=== PATIENT | male | born 1945 | race Caucasian/White ===

== ENCOUNTER 2018-07-22 14:59 | Observation (INO) ==
--- NOTE | 2018-07-22 15:54 | XR ---
EXAM DATE: 07/22/2018 3:51 PM EDT AGE/SEX: 73 years / Male INDICATIONS: . Chest pain. CLINICAL DATA: This is the patient's initial encounter. Patient reports that signs and symptoms have been present for 1 day and indicates a pain score of 7/10. MEDICAL/SURGICAL HISTORY: Heart disease. CABG. Pacemaker. COMPARISON: No prior exams available for comparison. FINDINGS: Dual lead pacemaker in place. Median sternotomy wires with postsurgical features of prior aortic valv e replacement. No significant focal pleural or parenchymal opacities. Cardiomediastinal contours are within normal limits. Bony thorax is intact. CONCLUSION: 1. Postsurgical features. 2. No acute cardiopulmonary disease. Electronically signed by: Deion Jaimes MD 07/22/2018 3:53 PM EDT
[2018-07-22 17:41] LABS: Baso % (Auto) 0.5 % (0.0-2.0); Eos # (Auto) 0.2 th/mm3 (0.0-0.4); Eos % (Auto) 3.4 % (0.0-4.0); Hemoglobin 14.1 gm/dL (13.0-17.0); Lymph # (Auto) 1.2 th/mm3 (1.0-4.8); Lymph % (Auto) 24.3 % (9.0-44.0); Mean Corpuscular HGB Conc 34.4 % (32.0-36.0); Mean Corpuscular Hemoglobin 32.3 pg (27.0-34.0); Mean Corpuscular Volume 93.9 fL (80.0-100.0); Mean Platelet Volume 9.2 fL (7.0-11.0); Mono # (Auto) 0.5 th/mm3 (0.0-0.9); Mono % (Auto) 9.4 % (0.0-8.0); Neut # (Auto) 3.1 th/mm3 (1.8-7.7); Neut % (Auto) 62.4 % (16.0-70.0); Platelet Count 148 th/mm3 (150-450); Red Blood Count 4.37 mil/mm3 (4.50-5.90); Red Cell Distribution Width 15.2 % (11.6-17.2)
[2018-07-22 17:50] LABS: Activated Partial Thrombo Time 39.6 sec (24.3-30.1); INR 2.1 Ratio; Prothrombin Time 21.6 sec (9.8-11.6)
[2018-07-22 18:05] LABS: Anion Gap 7 meq/L (5-15); Aspartate Aminotransferase 24 U/L (15-37); Blood Urea Nitrogen 21 mg/dL (7-18); Calcium 8.6 mg/dL (8.5-10.1); Carbon Dioxide 27.1 meq/L (21.0-32.0); Chloride 109 meq/L (98-107); Glomerular Filtration Rate 46 mL/min (>89); Glucose,Random 78 mg/dL (74-106); Potassium 4.5 meq/L (3.5-5.1); Sodium 143 meq/L (136-145)
[2018-07-22 18:06] LABS: Alanine Aminotransferase 26 U/L (12-78)
--- NOTE | 2018-07-22 18:11 | ED ---
HPI General Chief Complaint: Chest Pain Stated Complaint: Abnormal Cardiac Result Time Seen by Provider: 07/22/18 17:14 Source: patient Mode of arrival: ambulatory Limitations: no limitations History of Present Illness HPI narrative: 73-year-old male presents to the emergency department for evaluation of chest pain that started about noon today. Patient says he was at an appointment at [facility] when he began having chest pain located midsternal. Says he has occasional radiation of sharp pain to his left shoulder but the pain is mainly located midsternal region. He says it "grabbed him". Says initially the onset was while sitting however, states throughout the time over there he developed chest pain with walking. He says this pain would last approximately 1 minute before resolving spontaneously. Says he has taken 4 baby aspirin today and is currently on Coumadin. States compliance with his medications. Says his pain is mild to moderate. He denies associated symptoms such as nausea or vomiting although he said last night he had a period of lightheadedness while cooking. Says he has not been feeling well for about a week but does not specify this further. He denies lightheadedness currently however. He has a history of CABG October 2016, s/p pacemaker, HTN, HLD. His under cutter is Dr. Gage in [place]. He does not remember his last stress test but he was told that his under cutter does not prefer to get one done. Last echocardiogram 2 weeks ago. MD complaint: chest pain Complete Quality Measures for STEMI Alert Patients STEMI Alert: No Duration: intermittent Onset: during rest and during exertion Pain location: substernal Severity: moderate Quality: other (grabbing) Pain radiation: LUE Relieving factors: rest Exacerbating factors: exertion and movement Treatments prior to arrival chest pain: aspirin Related Data Home Medications Medication Instructions Recorded Confirmed levothyroxine 75 mcg PO DAILY 07/22/18 07/22/18 metoprolol tartrate 50 mg PO BID 07/22/18 07/22/18 rosuvastatin 40 mg PO DAILY 07/22/18 07/22/18 trazodone 50 mg PO DAILY 07/22/18 07/22/18 warfarin 5 mg PO DAILY 07/22/18 07/22/18 warfarin 7.5 mg PO QWEEK 07/22/18 07/22/18 Allergies Allergy/AdvReac Type Severity Reaction Status Date / Time brimonidine [From Alphagan P] Allergy Rash Verified 07/22/18 15:16 dorzolamide Allergy Rash Verified 07/22/18 15:16 oxycodone Allergy Rash Verified 07/22/18 15:16 propafenone [From Rythmol] Allergy Rash Verified 07/22/18 15:16 Tetanus Vaccines and Toxoid Allergy Swelling Verified 07/22/18 15:16 zolpidem [From Ambien] AdvReac Nightmare Verified 07/22/18 15:16 Review of Systems ROS: all other systems reviewed are negative PENDING SALE TO [facility] Medical History Medical History Atrial fibrillation (Acute) CAD (coronary artery disease) (Acute) CVA (cerebral vascular accident) (Acute) Hyperlipidemia (Acute) Hypertension (Acute) Surgical History Surgical History History of permanent cardiac pacemaker placement (Acute) History of repair of hiatal hernia (Acute) Hx of CABG (Acute) Status post laser cataract surgery of both eyes (Acute) Social History Social History Substance History: No History of Abuse Second Hand Smoke Exposure: No Smoking Status: Never smoker Tobacco Type: Cigarettes How Often Do You Have a Drink Containing Alcohol: Never Recent Travel in [facility] within the Last 8 Weeks: No Recent Out of Country Travel within the Last 8 Weeks: No Immunization History Tetanus Immunization: Unsure Exam Narrative Exam Narrative: GENERAL: WD, WN in NAD SKIN: Focused skin assessment warm/dry. HEAD: Atraumatic. Normocephalic. EYES: Pupils equal and round. No scleral icterus. No injection or drainage. ENT: No nasal bleeding or discharge. Mucous membranes pink and moist. NECK: Trachea midline. No JVD. CARDIOVASCULAR: Regular rate and rhythm. No murmur appreciated. RESPIRATORY: No accessory muscle use. Clear to auscultation. Breath sounds equal bilaterally. GASTROINTESTINAL: Abdomen soft, non-tender, nondistended. Hepatic and splenic margins not palpable. No tenderness to palpation of the chest wall MUSCULOSKELETAL: No obvious deformities. No clubbing. No cyanosis. No edema. No tenderness to palpation of the calves NEUROLOGICAL: Awake and alert. No obvious cranial nerve deficits. Motor grossly within normal limits. Normal speech. PSYCHIATRIC: Appropriate mood and affect; insight and judgment normal. Course Initial Documented Vital Signs Temperature 97.8 F 07/22/18 15:03 Pulse Rate 64 07/22/18 15:03 Respiratory Rate 16 07/22/18 15:03 Blood Pressure 187/86 H 07/22/18 15:03 Pulse Oximetry 98 07/22/18 15:03 Last Documented Vital Signs Temperature 97.7 F 07/23/18 16:00 Pulse Rate 60 07/23/18 16:00 Respiratory Rate 16 07/23/18 16:00 Blood Pressure 136/67 07/23/18 16:00 Pulse Oximetry 96 07/23/18 16:00 Clinical Decision Support HEART Score Questions History: Moderately suspicious EKG: Non-specific repolarization disturbance Age: 65 years+ Risk Factors: 3 or more Risk Factors or Hx of Atherosclerotic Disease Initial Troponin: Normal Limit Heart Score HEART Score: 6 Medical Decision Making MDM Narrative Medical decision making narrative: 73-year-old male with a history of CABG 2016 status post pacemaker on Coumadin, hypertension, hyperlipidemia presents to the emergency department for chest [facility]. Says his pain started at noon and is intermittent and "grabbing". Currently his pain is mild at the worst. He denies associated signs or symptoms. His vital signs are stable. Labs ordered. BUN/creatinine 21/1.51. I do not have reference labs for this. INR 2.1 which is therapeutic for patient. Troponin negative Chest x-ray is stable. Will place patient in chest pain center for evaluation. Medical Screen Exam Complete: Yes Emergency Medical Condition: Yes Differential Diagnosis Differential Diagnosis: ACS, angina, unstable angina costochondritis Lab Data Result diagrams: 07/22/18 17:30 07/22/18 17:30 Lab Results 07/22/18 07/22/18 07/22/18 Range/Units 17:30 17:30 17:30 WBC 5.0 (4.0-11.0) th/mm3 RBC 4.37 L (4.50-5.90) mil/mm3 Hgb 14.1 (13.0-17.0) gm/dL Hct 41.0 (39.0-51.0) % MCV 93.9 (80.0-100.0) fL MCH 32.3 (27.0-34.0) pg MCHC 34.4 (32.0-36.0) % RDW 15.2 (11.6-17.2) % Plt Count 148 L (150-450) th/mm3 MPV 9.2 (7.0-11.0) fL Neut % (Auto) 62.4 (16.0-70.0) % Lymph % (Auto) 24.3 (9.0-44.0) % [place] % (Auto) 9.4 H (0.0-8.0) % Eos % (Auto) 3.4 (0.0-4.0) % Baso % (Auto) 0.5 (0.0-2.0) % Neut # (Auto) 3.1 (1.8-7.7) th/mm3 Lymph # (Auto) 1.2 (1.0-4.8) th/mm3 [place] # (Auto) 0.5 (0.0-0.9) th/mm3 Eos # (Auto) 0.2 (0.0-0.4) th/mm3 Baso # (Auto) 0.0 (0.0-0.2) th/mm3 WBC Differential . Differential Comment Auto diff final PT 21.6 H (9.8-11.6) sec INR 2.1 Ratio APTT 39.6 H (24.3-30.1) sec Sodium 143 (136-145) meq/L Potassium 4.5 (3.5-5.1) meq/L Chloride 109 H (98-107) meq/L Carbon Dioxide 27.1 (21.0-32.0) meq/L Anion Gap 7 (5-15) meq/L BUN 21 H (7-18) mg/dL Creatinine 1.51 H (0.60-1.30) mg/dL Estimated GFR 46 L (>89) mL/min Random Glucose 78 (74-106) mg/dL Calcium 8.6 (8.5-10.1) mg/dL Total Bilirubin 1.2 H (0.2-1.0) mg/dL AST 24 (15-37) U/L ALT 26 (12-78) U/L Alkaline Phosphatase 60 (45-117) U/L Total Creatine Kinase (39-308) U/L Troponin I Less than 0.02 L (0.02-0.05) ng/mL Total Protein 7.2 (6.4-8.2) g/dL Albumin 4.0 (3.4-5.0) g/dL 07/22/18 07/23/18 Range/Units 20:45 00:13 WBC (4.0-11.0) th/mm3 RBC (4.50-5.90) mil/mm3 Hgb (13.0-17.0) gm/dL Hct (39.0-51.0) % MCV (80.0-100.0) fL MCH (27.0-34.0) pg MCHC (32.0-36.0) % RDW (11.6-17.2) % Plt Count (150-450) th/mm3 MPV (7.0-11.0) fL Neut % (Auto) (16.0-70.0) % Lymph % (Auto) (9.0-44.0) % [place] % (Auto) (0.0-8.0) % Eos % (Auto) (0.0-4.0) % Baso % (Auto) (0.0-2.0) % Neut # (Auto) (1.8-7.7) th/mm3 Lymph # (Auto) (1.0-4.8) th/mm3 [place] # (Auto) (0.0-0.9) th/mm3 Eos # (Auto) (0.0-0.4) th/mm3 Baso # (Auto) (0.0-0.2) th/mm3 WBC Differential Differential Comment PT (9.8-11.6) sec INR Ratio APTT (24.3-30.1) sec Sodium (136-145) meq/L Potassium (3.5-5.1) meq/L Chloride (98-107) meq/L Carbon Dioxide (21.0-32.0) meq/L Anion Gap (5-15) meq/L BUN (7-18) mg/dL Creatinine (0.60-1.30) mg/dL Estimated GFR (>89) mL/min Random Glucose (74-106) mg/dL Calcium (8.5-10.1) mg/dL Total Bilirubin (0.2-1.0) mg/dL AST (15-37) U/L ALT (12-78) U/L Alkaline Phosphatase (45-117) U/L Total Creatine Kinase 249 (39-308) U/L Troponin I 0.03 Less than 0.02 L (0.02-0.05) ng/mL Total Protein (6.4-8.2) g/dL Albumin (3.4-5.0) g/dL Imaging Data Radiologist's impression: Chest X-Ray 07/22/18 15:16 CONCLUSION: 1. Postsurgical features. 2. No acute cardiopulmonary disease. Myocardial Perfusion Scan Nuc Med 07/23/18 00:00 CONCLUSION: 1. Left ventricle perfusion is within normal limits. 2. No wall motion abnormality is identified. Left ventricle ejection fraction is calculated at 51%. Discharge Plan Discharge Disposition Patient Disposition: 30 Still Patient Discharge Condition Condition: Stable Discharge Order Discharge Orders: Discharge Order (Routine); Ordered 07/23/18 Ordered By: Erin Neumann Discharge Details Anticipated Discharge Date: 07/23/18 Diagnosis: Angina at rest Physicians Team ED Provider: Andreea Jack ED Midlevel Provider: Emily Armstrong Primary Care Provider: UNKNOWN, Attending Provider: Celena Eddy ED Status: Left Department Discharge Information Discharge Date/Time: 07/22/18 19:45
[2018-07-22 18:13] LABS: Alkaline Phosphatase 60 U/L (45-117); Total Protein 7.2 g/dL (6.4-8.2)
[2018-07-22] MEDS ORDERED: Acetaminophen 500 MG Tablet PO PRN (18:22)
[2018-07-22 21:30] LABS: Troponin I 0.03 ng/mL (0.02-0.05)
--- NOTE | 2018-07-23 08:05 | P.HPCA ---
History of Present Illness Primary Care Physician: [facility] Chief Complaint: Chest pain History of Present Illness: 73 year old male with history of coronary artery disease, CABG (October 2016), atrial fibrillation, and hypothyroidism presents emergency room for further evaluation of chest pain. Onset yesterday afternoon at 2pm, while at regularly scheduled PCP appointment. Location substernal. Characterized sharp. Radiation to left anterior chest. Discomfort came on quickly, gradually improving within 5 minutes. Moderate in severity. No associated symptoms of nausea, vomiting, dyspnea, or diaphoresis. No precipitating or relieving factors. He reassured his primary care provider is comfort likely musculoskeletal and proceeded to walk out of office. Chest discomfort return after walking 4-5 steps. Duration 2 minutes, not as severe as first episode. At this point, his PCP recommended him to be further evaluated in ER. Drove himself to ER. No further chest discomfort as stated above since arrival. Reports "every now and then I get a shooting achy pain across my chest." No recent illness, injury, or fever. Denies similar pain in the past. Denies chest pain prior to requiring CABG. Reports routine echocardiogram lead to further cardiac testing, cardiac catheterization, and fairly emergent open heart surgery on November 20, 2016. Believes he only required 1 vessel bypass. Follows with wellness specialist in [place], [place], Dr. Gage. No cardiac testing or chest pain since CABG. No recent illness, cough, or injury. Lifelong nonsmoker. Social history . Disable -[employer]. Retired from [employer]. Endorses active lifestyle. - Diagnosis (1) Chest pain of uncertain etiology (2) Atrial fibrillation (3) History of coronary artery bypass graft (4) Mild renal insufficiency Review of Systems All other systems reviewed negative except as stated in HPI [facility] - History History Provided By: Patient - Medical History Medical History: Medical History (Last Updated 07/23/18 @ 11:11 by MICHEAL Wilson) Atrial fibrillation CAD (coronary artery disease) CVA (cerebral vascular accident) Hyperlipidemia Hypertension - Surgical History Surgical History: Surgical History (Last Updated 07/23/18 @ 11:12 by MICHEAL Wilson) History of permanent cardiac pacemaker placement History of repair of hiatal hernia Hx of CABG Status post laser cataract surgery of both eyes - Tobacco History Second Hand Smoke Exposure: No Tobacco Use In Past 30 Days: No Smoking Status: Never smoker Tobacco Type: Cigarettes - Alcohol History How Often Do You Have a Drink Containing Alcohol: Never - Substance Use History Substance History: No History of Abuse - Travel History Recent Travel in the [place] Within the Last 8 Weeks: No Recent Travel Out of the Country Within the Last 8 Weeks: No - Immunization History Tetanus Immunization: Unsure Medications and Allergies Active Medications: Active Medications Acetaminophen (Tylenol) 500 mg PO Q4H PRN PRN Reason: HEADACHE Ondansetron HCl (Zofran Inj) 4 mg IV.PUSH Q6H PRN PRN Reason: NAUSEA Sodium Chloride (Ns Flush) 2 ml IV.FLUSH UNSCH PRN PRN Reason: FLUSH AFTER USING IV ACCESS Sodium Chloride (Ns Flush) 2 ml IV.FLUSH BID PACO Last Admin: 07/22/18 19:25 Dose: 2 ml Sodium Chloride (Ns Flush) 2 ml IV.FLUSH PRN PRN PRN Reason: FLUSH AFTER USING IV ACCESS Allergies Allergy/AdvReac Type Severity Reaction Status Date / Time brimonidine [From Alphagan P] Allergy Rash Verified 07/22/18 15:16 dorzolamide Allergy Rash Verified 07/22/18 15:16 oxycodone Allergy Rash Verified 07/22/18 15:16 propafenone [From Rythmol] Allergy Rash Verified 07/22/18 15:16 Tetanus Vaccines and Toxoid Allergy Swelling Verified 07/22/18 15:16 zolpidem [From Ambien] AdvReac Nightmare Verified 07/22/18 15:16 Home Medications Medication Instructions Recorded Confirmed Type levothyroxine 75 mcg PO DAILY 07/22/18 07/22/18 History metoprolol tartrate 50 mg PO BID 07/22/18 07/22/18 History rosuvastatin 40 mg PO DAILY 07/22/18 07/22/18 History trazodone 50 mg PO DAILY 07/22/18 07/22/18 History warfarin 5 mg PO DAILY 07/22/18 07/22/18 History warfarin 7.5 mg PO QWEEK 07/22/18 07/22/18 History Exam Vital signs: Vital Signs 07/22/18 15:03 07/22/18 17:11 07/22/18 17:25 Temperature 97.8 F Pulse Rate 64 60 Respiratory Rate 16 17 Blood Pressure 187/86 H 178/86 H Pulse Oximetry 98 98 96 07/22/18 18:09 07/22/18 19:32 07/22/18 20:00 Temperature 98.6 F Pulse Rate 59 L 60 60 Respiratory Rate 17 18 16 Blood Pressure 181/79 H 167/79 H 121/72 Pulse Oximetry 98 97 95 07/23/18 00:00 07/23/18 04:00 07/23/18 07:09 Temperature 98.1 F 98.6 F Pulse Rate 65 63 68 Respiratory Rate 16 16 Blood Pressure 140/73 133/68 Pulse Oximetry 94 L 94 L Intake & Output 07/22/18 07/23/18 07/23/18 18:59 06:59 18:59 Weight 116.573 kg 116.573 kg Other: Weight On Admission 116.573 kg Narrative: GENERAL: Alert WN, WD, NAD, pleasant, obese elderly male HEAD: NC, AT NECK: Supple, no masses, trachea midline CV: RRR, without murmur, rub, gallop, no JVD. No carotid bruits. Chest wall nontender with palpation. RESP: Clear lungs throughout bilateral, no crackles, wheeze, rhonchi, symmetrical chest rise, nonlabored, able to speak in full sentences ABD: Soft, NT, ND, no masses, positive bowel tones EXT: Pulses +2x4, no dependent edema MS: Normal tone x4 extremities, nontender, no obvious deformities, full range of motion NEURO: CN II through CN XII grossly intact, motor strength 5/5 PSYCH: A+O x3, pleasant affect, appropriate speech, mood, insight and judgment SKIN: Normal turgor, normal texture, no lesions, no rashes, brisk cap refill, even hair distribution Results 07/22/18 17:30 07/22/18 17:30 Cardiac Enzymes 07/22/18 07/22/18 07/23/18 Range/Units 17:30 20:45 00:13 AST 24 (15-37) U/L Troponin I Less than 0.02 L 0.03 Less than 0.02 L (0.02-0.05) ng/mL Coagulation 07/22/18 Range/Units 17:30 PT 21.6 H (9.8-11.6) sec APTT 39.6 H (24.3-30.1) sec CBC 07/22/18 Range/Units 17:30 WBC 5.0 (4.0-11.0) th/mm3 RBC 4.37 L (4.50-5.90) mil/mm3 Hgb 14.1 (13.0-17.0) gm/dL Hct 41.0 (39.0-51.0) % Plt Count 148 L (150-450) th/mm3 Neut # (Auto) 3.1 (1.8-7.7) th/mm3 Lymph # (Auto) 1.2 (1.0-4.8) th/mm3 [place] # (Auto) 0.5 (0.0-0.9) th/mm3 Eos # (Auto) 0.2 (0.0-0.4) th/mm3 Baso # (Auto) 0.0 (0.0-0.2) th/mm3 Comprehensive Metabolic Panel 07/22/18 Range/Units 17:30 Sodium 143 (136-145) meq/L Potassium 4.5 (3.5-5.1) meq/L Chloride 109 H (98-107) meq/L Carbon Dioxide 27.1 (21.0-32.0) meq/L BUN 21 H (7-18) mg/dL Creatinine 1.51 H (0.60-1.30) mg/dL Calcium 8.6 (8.5-10.1) mg/dL AST 24 (15-37) U/L ALT 26 (12-78) U/L Alkaline Phosphatase 60 (45-117) U/L Total Protein 7.2 (6.4-8.2) g/dL Albumin 4.0 (3.4-5.0) g/dL Intake and Output 07/22/18 07/23/18 07/23/18 22:59 06:59 14:59 Other: Weight 116.573 kg Weight On Admission 116.573 kg EKG interpretations - EKG EKG results cardiology: WNL (ventricular paced) Caprini VTE Risk Assessment Caprini VTE Risk Assessment: Moderate/High Risk (score >= 2) Caprini Risk Assessment Model: Point Value = 1 Point Value = 2 Point Value = 3 Point Value = 5 Age 41-60 Minor surgery BMI > 25 kg/m2 Swollen legs Varicose veins or History of unexplained or recurrent spontaneous Oral contraceptives or hormone replacement Sepsis (< 1 month) Serious lung disease, including pneumonia (< 1 month) Abnormal pulmonary function Acute myocardial infarction Congestive heart failure (< 1 month) History of inflammatory bowel disease Medical patient at bed rest Age 61-74 Arthroscopic surgery Major open surgery (> 45 min) Laparoscopic surgery (> 45 min) Malignancy Confined to bed (> 72 hours) Immobilizing plaster cast Central venous access Age >= 75 History of VTE Family history of VTE Factor V Leiden Prothrombin [id number] Lupus anticoagulant Anticardiolipin antibodies Elevated serum homocysteine Heparin-induced thrombocytopenia Other congenital or acquired thrombophilia Stroke (< 1 month) Elective arthroplasty Hip, pelvis, or leg fracture Acute spinal cord injury (< 1 month) Prophylaxis Regimen: Total Risk Factor Score Risk Level Prophylaxis Regimen 0-1 Low Early ambulation 2 Moderate Order ONE of the following: *Sequential Compression Device (SCD) *Heparin 5000 units SQ BID 3-4 Higher Order ONE of the following medications: *Heparin 5000 units SQ TID *Enoxaparin/Lovenox 40 mg SQ daily (WT < 150 kg, CrCl > 30 mL/min) *Enoxaparin/Lovenox 30 mg SQ daily (WT < 150 kg, CrCl > 10-29 mL/min) *Enoxaparin/Lovenox 30 mg SQ BID (WT < 150 kg, CrCl > 30 mL/min) AND/OR *Sequential Compression Device (SCD) 5 or more Highest Order ONE of the following medications: *Heparin 5000 units SQ TID (Preferred with Epidurals) *Enoxaparin/Lovenox 40 mg SQ daily (WT < 150 kg, CrCl > 30 mL/min) *Enoxaparin/Lovenox 30 mg SQ daily (WT < 150 kg, CrCl > 10-29 mL/min) *Enoxaparin/Lovenox 30 mg SQ BID (WT < 150 kg, CrCl > 30 mL/min) AND *Sequential Compression Device (SCD) Assessment and Plan - Assessment (1) Chest pain of uncertain etiology Code(s): R07.89 - Other chest pain Status: Acute Plan: Admitted chest pain center. ACS ruled out 3 sets of EKGs and cardiac enzymes. Will be seen and evaluated by Dr. Dominick Bernardo. Further recommendations to follow after evaluation by wellness specialist to determine if any further cardiac testing is required during visit. Patient agreeable to plan of care and verbalizes understanding. (2) Atrial fibrillation Code(s): I48.91 - Unspecified atrial fibrillation Status: Chronic Plan: Continue warfarin 5 mg daily. (3) History of coronary artery bypass graft Code(s): Z95.1 - Presence of aortocoronary bypass graft Status: Chronic Plan: Continue metoprolol and rosuvastatin. Follow up with wellness specialist upon discharge. (4) Mild renal insufficiency Code(s): N28.9 - Disorder of kidney and ureter, unspecified Status: Acute Plan: Follow up with primary care provider upon discharge to tread renal function. H&P: Quality - VTE Deep Vein Thrombosis/Pulmonary Embolism Present on Admission: No (2) Atrial fibrillation Qualifiers: Atrial fibrillation type: chronic Qualified Code(s): I48.2 - Chronic atrial fibrillation
[2018-07-23] MEDS ORDERED: Metoprolol Tartrate 50 MG Tablet PO SCH (09:00)
[2018-07-23] MEDS ORDERED: Levothyroxine 75 MCG Tablet PO SCH (09:00)
[2018-07-23] MEDS ORDERED: Non-Formulary Drug (Rosuvastatin [Rosuvastatin] 40 MG) PO SCH (09:00)
--- NOTE | 2018-07-23 13:29 | ECG ---
Date Performed: 07/22/2018 Time Performed: 15:41:19 PTAGE: 73 years EKG: ELECTRONIC ATRIAL PACEMAKER Right bundle branch block with Left anterior fascicular block A BNORMAL RHYTHM ECG NO PREVIOUS TRACING DOCTOR: Khoa Hoskins Interpretating Date/Time 07/23/2018 13:29:23
--- NOTE | 2018-07-23 13:30 | ECG ---
Date Performed: 07/22/2018 Time Performed: 21:07:36 PTAGE: 73 years EKG: ELECTRONIC ATRIAL PACEMAKER Right bundle branch block with Left anterior fascicular block A BNORMAL RHYTHM ECG PREVIOUS TRACING : 07/22/2018 15.41 DOCTOR: Khoa Hoskins Interpretating Date/Time 07/23/2018 13:29:36
--- NOTE | 2018-07-23 13:32 | ECG ---
Date Performed: 07/23/2018 Time Performed: 00:35:06 PTAGE: 73 years EKG: ELECTRONIC ATRIAL PACEMAKER Right bundle branch block with Left anterior fascicular block A BNORMAL RHYTHM ECG Since PREVIOUS TRACING , no significant change noted PREVIOUS TRACIN07/22/18 DOCTOR: Khoa Hoskins Interpretating Date/Time 07/23/2018 13:30:32
--- NOTE | 2018-07-23 14:01 | P.PNCA ---
Subjective Interval history: 73-year-old patient presented by nurse practitioner. Patient is an extremely poor historian and during my intervention found it necessary to contact his to get more definitive information regarding his past history. In essence he presented [facility] in began clutching his chest which precipitated a referral to the emergency room. History is obtained here indicates that over the last 2-3 weeks he has been having some episodes of "blacking out" which he means is a sense of losing his vision for 10-15 seconds. This is not related to activities or position. He also experienced 2 very short sharp episodes of chest pain while at the [facility] which precipitated his transfer here. The patient initially gave a history of having had open heart surgery but on further evaluation it was determined that in follow-up for a pacemaker which was apparently placed due to fast heart rhythm "runaway heart" some abnormality was seen which precipitated an echocardiogram the echocardiogram then resulted in a referral to [facility] and subsequent further evaluation resulting in replacement of his aortic valve. At that time he was told that his heart vessels were okay and did not require any further intervention. This was carried out in December 2015. He is followed on a yearly basis by a pinked edge sewing machine operator by the name of [place] in [place]. Additional history includes hypertension hyperlipidemia and a CVA involving the left marquis-paresis when he was about 42 years old with good resolution. He also gives a history of having had a stress test in the more distant past which he was told he failed. Further testing at this time will be entertained but would involve nuclear stress testing in view of his history Physical Exam Vital signs: Vital Signs 07/22/18 15:03 07/22/18 17:11 07/22/18 17:25 Temperature 97.8 F Pulse Rate 64 60 Respiratory Rate 16 17 Blood Pressure 187/86 H 178/86 H Pulse Oximetry 98 98 96 07/22/18 18:09 07/22/18 19:32 07/22/18 20:00 Temperature 98.6 F Pulse Rate 59 L 60 60 Respiratory Rate 17 18 16 Blood Pressure 181/79 H 167/79 H 121/72 Pulse Oximetry 98 97 95 07/23/18 00:00 07/23/18 04:00 07/23/18 07:09 Temperature 98.1 F 98.6 F Pulse Rate 65 63 68 Respiratory Rate 16 16 Blood Pressure 140/73 133/68 Pulse Oximetry 94 L 94 L 07/23/18 08:00 07/23/18 09:10 07/23/18 12:00 Temperature 98.6 F 97.6 F Pulse Rate 58 L 60 56 L Respiratory Rate 16 16 Blood Pressure 149/87 H 142/77 H Pulse Oximetry 98 96 Intake & Output 07/22/18 07/23/18 07/23/18 18:59 06:59 18:59 Weight 116.573 kg 116.573 kg Other: Date of Last Bowel Movement 07/22/18 Weight On Admission 116.573 kg Narrative: Pleasant well developed slightly obese man in no acute distress cooperative Head normocephalic atraumatic with bilateral hearing aids in place Eyes PERRLA EOMI sclera clear bilateral intraocular lenses Mouth mucous membranes moist tongue well papillated no lesions Neck supple no JVD masses nodes or bruits Chest well-healed sternotomy scar clear to auscultation no rales wheezes rhonchi Cardiovascular pacemaker is in place regular sinus rhythm there is no gallop or rub but there is a very soft 2/6 systolic murmur which does radiate into the aortic area and somewhat towards the left Extremities no clubbing cyanosis or edema but mild stasis changes are noted Assessment and Plan - Assessment (1) Chest pain of uncertain etiology Code(s): R07.89 - Other chest pain Status: Acute Plan: Admitted chest pain center. ACS ruled out 3 sets of EKGs and cardiac enzymes. Will be seen and evaluated by Dr. Dominick Bernardo. Further recommendations to follow after evaluation by pinked edge sewing machine operator to determine if any further cardiac testing is required during visit. Patient agreeable to plan of care and verbalizes understanding. Patient has been ruled out using standard chest pain center protocol after discussion with nurse practitioner and the patient further evaluation with nuclear scan will be ordered. Should be noted that the patient does request this be obtained through [facility]. (2) Atrial fibrillation Code(s): I48.91 - Unspecified atrial fibrillation Status: Chronic Plan: Continue warfarin 5 mg daily. (3) History of coronary artery bypass graft Code(s): Z95.1 - Presence of aortocoronary bypass graft Status: Chronic Plan: Continue metoprolol and rosuvastatin. Follow up with pinked edge sewing machine operator upon discharge. (4) Mild renal insufficiency Code(s): N28.9 - Disorder of kidney and ureter, unspecified Status: Acute Plan: Follow up with primary care provider upon discharge to tread renal function. (2) Atrial fibrillation Qualifiers: Atrial fibrillation type: chronic Qualified Code(s): I48.2 - Chronic atrial fibrillation
[2018-07-23] MEDS ORDERED: Regadenoson Inj 0.4 MG/5 ML Syringe IV.PUSH ONE (14:57)
--- NOTE | 2018-07-23 16:35 | NM ---
EXAM DATE: 07/23/2018 4:29 PM EDT AGE/SEX: 73 years / Male INDICATIONS:Angina. . Unstable angina. CLINICAL DATA: This is the patient's initial encounter. Patient reports that signs and symptoms have been present for 1 day and indicates a pain score of 3/10. MEDICAL/SURGICAL HISTORY: Hypertension. Stroke. Atrial fibrillation, Coronary artery disease, hyperlipidemia. Pacemaker. CABG. Repair of hiatal hernia. COMPARISON: No prior exams available for comparison. DOSE: 11.3 mCi Tc 99m Myoview at rest 35.1 mCi [id number] at stress 0.4 mg Lexiscan STRESS SYMPTOMS: Headache, flushing EJECTION FRACTION: 51 % TECHNIQUE: The patient underwent pharmacologic stress with infusion of prescribed dose. Continuous ECG tracing was monitored during stress. Gated SPECT imaging was performed after stress and conventi onal SPECT imaging was performed at rest. The examination was performed on a SPECT/CT scanner, both attenuation and non-corrected datasets were reviewed. FINDINGS: Distribution: The maximum perfused segment at stress is in the anterior lateral wall. Perfusion Study: The pattern of perfusion at stress is within normal limits. Gated Study: There are intact wall motion and wall thickening without hypokinetic or dyskinetic segm ents. The ejection fraction is calculated at 51%. RISK CATEGORY: Low (<1% Annual Motality Rate) CONCLUSION: 1. Left ventricle perfusion is within normal limits. 2. No wall motion abnormality is identified. Left ventricle ejection fraction is calculated at 51%. Electronically signed by: Richard Dueñas MD 07/23/2018 4:33 PM EDT
--- NOTE | 2018-07-24 12:03 | TR ---
Date Performed: 07/23/2018 Time Performed: 15:09:38 DOCTOR: Dominick Bernardo DRUG LIST: CLINICAL HISTORY: REASON FOR TEST: Angina REASON FOR ENDING: OBSERVATION: CONCLUSION: Lexiscan stress test was performed under standard four minute protocol. Radionuclide was injected one minute prior to ending the test. No electrocardiographic abormalities were present to suggest ischemia. Nuclear imaging and interpretation are pending. COMMENTS:
== END 2018-07-23 18:23 | disposition home or self-care (01) ==
LOC: NEPC 14:59 → NEDA 14:59 → NEPFCDU 19:44
PROVIDERS: ADMIT Internal Medicine Interventional Cardiology; ATTEND Internal Medicine Interventional Cardiology